=== PATIENT | female | born 1965 | race Caucasian/White ===

== ENCOUNTER 2023-12-31 12:32 | Emergency (ER) | payer OTHER ==
--- NOTE | 2023-12-31 13:55 | RAD REPORT ---
EXAM DESCRIPTION: Roger Single View12/31/2023 1:45 pm CLINICAL HISTORY: Cough COMPARISON: none FINDINGS: The lungs appear clear of acute infiltrate. The heart is normal size. Postsurgical changes involve chest IMPRESSION: No acute abnormalities displayed
[2023-12-31 14:04] LABS: SARS-CoV-2 Antigen CONTROL BLUE LINE VIS/BG OK; SARS-CoV-2 Antigen Rapid Res Negative (Negative)
[2023-12-31] MEDS ORDERED: predniSONE 20 MG TAB ONE (14:52)
[2023-12-31] MEDS ORDERED: AZITHROMYCIN 250 MG TAB ONE (14:52)
[2023-12-31] MEDS ORDERED: LEVALBUTEROL 1.25 MG/3 ML NEB ONE (14:52)
--- NOTE | 2023-12-31 15:01 | EDPHYS ---
Physician Documentation [facility] Name: Sydney Malone Age: 58 yrs Sex: Female : 1965 Arrival Date: 12/31/2023 Time: 12:32 Bed 9 Private MD: ED Physician Low Mccarthy HPI: 12/30 14:33 This 58 yrs old Female presents to ER via Ambulatory with complaints of Cold Symptoms, rn Chest Congestion. 14:33 The patient or guardian reports cough. rn 14:35 Onset: The symptoms/episode began/occurred 1 week(s) ago. Severity of symptoms: At rn their worst the symptoms were moderate, in the emergency department the symptoms are unchanged. Modifying factors: The symptoms are alleviated by nothing, the symptoms are aggravated by nothing. Associated signs and symptoms: Pertinent negatives: fever. The patient has not experienced similar symptoms in the past. The patient has not recently seen a physician. Patient reports 1 week of cough and congestion, feels like had aspiration episode when this began. Seen at urgent care when began and told no pneumonia. Still coughing with wheezing. + smoker. . Historical: - Allergies: 13:02 Morphine; tm6 13:02 egg yolk; tm6 13:02 monocryl sutures; tm6 - PMHx: 12:57 Systemic lupus erythematosus; tm6 13:02 Hypothyroidism; degenerative disc disease; neuropathy; Migraine; tm6 - PSHx: 13:02 atrial septal defect surgery; neck fusion; shoulder; lower back; Total abdominal tm6 hysterectomy; Cholecystectomy; - Immunization history:: Client reports receiving the 2nd dose of the Covid vaccine. - Infectious Disease History:: Denies. - Social history:: Smoking status: Patient reports the use of cigarette tobacco products, smokes one-half pack cigarettes per day, Patient/guardian denies using alcohol. - Family history:: not pertinent. - Hospitalizations: : No recent hospitalization is reported. ROS: 14:35 Constitutional: Negative for fever, chills, and weight loss, Cardiovascular: Negative rn for chest pain, palpitations, and edema, Respiratory: + cough and sob Abdomen/GI: Negative for abdominal pain, nausea, vomiting, diarrhea, and constipation, MS/Extremity: Negative for injury and deformity, Skin: Negative for injury, rash, and discoloration, Neuro: Negative for headache, weakness, numbness, tingling, and seizure, Exam: 14:35 Constitutional: This is a well developed, well nourished patient who is awake, alert, rn and in no acute distress. Head/Face: Normocephalic, atraumatic. ENT: No stridor Cardiovascular: Tachycardic, regular. No pulse deficits. Respiratory: + moderate tachypnea, no retractions, mild wheezing. Abdomen/GI: Soft, non-tender MS/ Extremity: Pulses equal, no cyanosis. Neuro: Awake and alert, GCS 15 Vital Signs: 12:54 BP 134 / 102; Pulse 112; Resp 20; Temp 98.7(O); Pulse Ox 98% on R/A; Weight 78.93 kg; tm6 Height 5 ft. 8 in. ; Pain 4/10; 15:12 BP 119 / 83; Pulse 89; Resp 18; Pulse Ox 96% on R/A; ll1 12:54 Body Mass Index 26.46 (78.93 kg, 172.72 cm) tm6 12:54 Pain Scale: Adult tm6 MDM: 12:44 Patient medically screened. rn 15:01 Differential Diagnosis: Viral Syndrome Pneumonia. Data reviewed: vital signs, nurses rn notes, lab test result(s), radiologic studies, and as a result, I will discharge patient. Counseling: I had a detailed discussion with the patient and/or guardian regarding the historical points, exam findings, and any diagnostic results supporting the discharge/admit diagnosis, lab results, radiology results, the need for outpatient follow up, to return to the emergency department if symptoms worsen or persist or if there are any questions or concerns that arise at home. Response to treatment: the patient's symptoms have mildly improved after treatment, and as a result, I will discharge patient. Special discussion: I discussed with the patient/guardian in detail that at this point there is no indication for admission to the hospital. It is understood, however, that if the symptoms persist or worsen the patient needs to return immediately for re-evaluation. 12/30 12:45 Order name: SARS RAPID; Complete Time: 14:07 rn 12/30 12:45 Order name: Flu; Complete Time: 14: rn 12/30 12:45 Order name: XRAY Chest (1 view) rn Administered Medications: 14:59 Drug: Levalbuterol Inhalation 1.25 mg Inhalation once Route: Inhalation; ll1 15:12 Follow up: Response: No adverse reaction; Wheezing diminished; RASS: Alert and Calm (0) ll1 14:59 Drug: predniSONE PO 60 mg PO once Route: PO; ll1 15:12 Follow up: Response: No adverse reaction ll1 14:59 Drug: AZITHromycin PO 500 mg PO once Route: PO; ll1 15:12 Follow up: Response: No adverse reaction ll1 Disposition Summary: 12/31/23 15:01 Discharge Ordered Notes: Location: Home rn Problem: new rn Symptoms: have improved rn Condition: Stable rn Diagnosis - Cough rn Followup: rn - With: Private Physician - When: As needed - Reason: Recheck today's complaints, Re-evaluation by your physician Discharge Instructions: - Discharge Summary Sheet rn - Cough, Adult rn - Pneumonitis rn Forms: - Medication Reconciliation Form rn - Antibiotic athletic training internship - Prescription Opioid Use rn - Patient Portal Instructions rn - Leadership Thank You Letter rn Prescriptions: - albuterol sulfate 90 mcg/actuation Inhalation HFA Aerosol Inhaler - inhale 2 inhalation INHALATION route every 4 to 6 hours As needed as needed for rn bronchospasm; administer via ventilator; 1 unit; Refills: 0, Product Selection Permitted - Prednisone 20 mg Oral Tablet - take 3 tablets ORAL route once daily for 5 days; 15 tablet; Refills: 0, Product rn Selection Permitted - Zithromax Z-Vijay 250 mg Oral Tablet - take 1 tablet ORAL route as directed for 5 days Day 1 - take two (2) tablets rn one time. Day 2, 3, 4 , 5 take one (1) tablet once daily.; 6 tablet; Refills: 0, Product Selection Permitted Signatures: Dispatcher [employer] Low Oleary MD MD rn Lewis, Lynsay RN RN ll1 Kyle Damon RN RN tm6
--- NOTE | 2023-12-31 15:01 | ER ---
Nurse's Notes [facility] Name: Sydney Malone Age: 58 yrs Sex: Female : 1965 Arrival Date: 12/31/2023 Time: 12:32 Bed 9 Private MD: Diagnosis: Cough Presentation: 12/30 12:55 Chief complaint: Patient states: one week ago went to urgent care because I tm6 accidentally inhaled my pills through my lungs, it was burning. They didn't know what to do for me. Since then, I have been coughing and had chest congestion. I have also been around my family who has been sick. I have felt short of breath. Ebola Screen: Patient negative for fever greater than or equal to 101.5 degrees Fahrenheit, and additional compatible Ebola Virus Disease symptoms Patient denies exposure to infectious person. Patient denies travel to an Ebola-affected area in the 21 days before illness onset. No symptoms or risks identified at this time. Initial Sepsis Screen: Does the patient meet any 2 criteria? No. Patient's initial sepsis screen is negative. Does the patient have a suspected source of infection? No. Patient's initial sepsis screen is negative. Risk Assessment: Do you want to hurt yourself or someone else? Patient reports no desire to harm self or others. Onset of symptoms was December 24, 2023. 12:55 Method Of Arrival: Ambulatory tm6 12:55 Acuity: GENEVA 4 tm6 13:00 Coronavirus screen: Vaccine status: Patient reports receiving the 2nd dose of the covid tm6 vaccine. Triage Assessment: 12:57 General: Appears in no apparent distress. uncomfortable, Behavior is calm, cooperative. tm6 Pain: Complains of pain in chest Pain currently is 4 out of 10 on a pain scale. EENT: No signs and/or symptoms were reported regarding the EENT system. Neuro: Level of Consciousness is awake, alert, obeys commands, Oriented to person, place, time, situation. Cardiovascular: Patient's skin is warm and dry. Respiratory: Reports shortness of breath at rest cough that is non-productive, persistent pain with cough Airway is patent Respiratory effort is even, unlabored, Respiratory pattern is regular, symmetrical, Onset: The symptoms/episode began/occurred one week ago. GI: No signs and/or symptoms were reported involving the gastrointestinal system. Abdomen is flat, non-distended. : No signs and/or symptoms were reported regarding the genitourinary system. Derm: No signs and/or symptoms reported regarding the dermatologic system. Musculoskeletal: No signs and/or symptoms reported regarding the musculoskeletal system. Historical: - Allergies: 13:02 Morphine; tm6 13:02 egg yolk; tm6 13:02 monocryl sutures; tm6 - PMHx: 12:57 Systemic lupus erythematosus; tm6 13:02 Hypothyroidism; degenerative disc disease; neuropathy; Migraine; tm6 - PSHx: 13:02 atrial septal defect surgery; neck fusion; shoulder; lower back; Total abdominal tm6 hysterectomy; Cholecystectomy; - Immunization history:: Client reports receiving the 2nd dose of the Covid vaccine. - Infectious Disease History:: Denies. - Social history:: Smoking status: Patient reports the use of cigarette tobacco products, smokes one-half pack cigarettes per day, Patient/guardian denies using alcohol. - Family history:: not pertinent. - Hospitalizations: : No recent hospitalization is reported. Screenin:13 [facility] ED Fall Risk Assessment (Adult) History of falling in the last 3 months, ll1 including since admission No falls in past 3 months (0 pts) Confusion or Disorientation No (0 pts) Intoxicated or Sedated No (0 pts) Impaired Gait No (0 pts) Mobility Assist Device Used No (0 pt) Altered Elimination No (0 pt) Score/Fall Risk Level 0 - 2 = Low Risk Maintained a safe environment, Hourly rounding (assess needs \T\ fall precautionary measures) done. Abuse screen: Denies threats or abuse. Nutritional screening: No deficits noted. Tuberculosis screening: No symptoms or risk factors identified. Assessment: 14:10 Reassessment: No changes from previously documented assessment. Patient and/or family ll1 updated on plan of care and expected duration. Pain level reassessed. Patient is alert, oriented x 3, equal unlabored respirations, skin warm/dry/pink. 14:59 Reassessment: No changes from previously documented assessment. Patient and/or family ll1 updated on plan of care and expected duration. Pain level reassessed. Patient is alert, oriented x 3, equal unlabored respirations, skin warm/dry/pink. Respiratory: Reports shortness of breath Airway is patent Trachea midline Respiratory effort is even, labored, Respiratory pattern is regular, Breath sounds with wheezes bilaterally. 15:12 Reassessment: No changes from previously documented assessment. Patient and/or family ll1 updated on plan of care and expected duration. Pain level reassessed. Patient is alert, oriented x 3, equal unlabored respirations, skin warm/dry/pink. Vital Signs: 12:54 BP 134 / 102; Pulse 112; Resp 20; Temp 98.7(O); Pulse Ox 98% on R/A; Weight 78.93 kg; tm6 Height 5 ft. 8 in. ; Pain 4/10; 15:12 BP 119 / 83; Pulse 89; Resp 18; Pulse Ox 96% on R/A; ll1 12:54 Body Mass Index 26.46 (78.93 kg, 172.72 cm) tm6 12:54 Pain Scale: Adult tm6 ED Course: 12:35 Patient arrived in ED. ra3 12:44 Low Mccarthy MD is Attending Physician. rn 12:57 Triage completed. tm6 12:57 Arm band placed on right wrist. tm6 13:10 Flu Sent. tm6 13:10 SARS RAPID Sent. tm6 13:46 XRAY Chest (1 view) In Process Unspecified. EDMS 14:09 Patient placed in an exam room, on a stretcher. ll1 15:00 Patient has correct armband on for positive identification. Cardiac monitoring not ll1 applicable on this patient. 15:13 Provided Education on: finish all prescribed antibiotics. ll1 15:13 No provider procedures requiring assistance completed. Patient did not have IV access ll1 during this emergency room visit. Administered Medications: 14:59 Drug: Levalbuterol Inhalation 1.25 mg Inhalation once Route: Inhalation; ll1 15:12 Follow up: Response: No adverse reaction; Wheezing diminished; RASS: Alert and Calm (0) ll1 14:59 Drug: predniSONE PO 60 mg PO once Route: PO; ll1 15:12 Follow up: Response: No adverse reaction ll1 14:59 Drug: AZITHromycin PO 500 mg PO once Route: PO; ll1 15:12 Follow up: Response: No adverse reaction ll1 Medication: 14:14 VIS not applicable for this client. ll1 Outcome: 15:01 Discharge ordered by . rn 15:13 Discharged to home ambulatory, ll1 15:13 Condition: stable 15:13 Discharge instructions given to patient, Instructed on discharge instructions, follow up and referral plans. medication usage, Demonstrated understanding of instructions, follow-up care, medications, Prescriptions given X 3, 15:13 Patient left the ED. ll1 Signatures: Dispatcher [employer] EDMS Low Mccarthy MD MD rn Lewis, Lynsay RN RN ll1 Kyle Damon RN RN 6 Veronica Knight [facility]
[2023-12-31 15:26] VITALS: BP 119/83; TEMP 98.7; O2SAT 96
== END 2023-12-31 15:13 | disposition home or self-care (01) ==
LOC: ER 12:32
DX: R05.9 Cough, unspecified (principal); R09.89 Other specified symptoms and signs involving the circulatory and respiratory systems; F17.210 Nicotine dependence, cigarettes, uncomplicated; Z11.52 Encounter for screening for COVID-19
CPT/HCPCS: 36415; 87804 ×2; 71045; 99284; 87811; J7512; J7614

== ENCOUNTER 2024-08-15 18:25 | Emergency (ER) | payer OTHER ==
[2024-08-15] MEDS ORDERED: ONDANSETRON 4 MG/2 ML VIAL ONE (19:51)
[2024-08-15] MEDS ORDERED: HYDROMORPHONE HCL 1 MG/ML INJ ONE ×2 (19:51→22:38)
[2024-08-15] MEDS ORDERED: NA CHLORIDE 0.9% 1,000 ML ONE (20:22)
[2024-08-15 20:24] LABS: Absolute Eosinophils 0.2 K/uL (0-0.5); Absolute Lymphocytes (CBC) 2.5 K/uL (0.7-4.9); Absolute Monocytes 0.4 K/uL (0.1-1.3); Absolute Neutrophil 3.6 K/uL (1.8-8.0); Basophils % 0.3 % (0-1.3); Eosinophils % 2.5 % (0-4.4); Hemoglobin 15.3 g/dL (12.0-15.0); Lymphocytes % 36.9 % (15.3-44.8); MCH 31.3 pg (27.0-35.0); MCHC 34.8 g/dL (32.0-36.0); MCV 90.1 fL (80-100); MPV 7.9 fL (7.6-11.3); Monocytes % 5.9 % (3.3-12.3); Neutrophils % 54.4 % (41.7-73.7); Nucleated Red Blood Cells % 0.1 % (0-0); Platelets 284 thou/uL (152-406); RBC Red Blood Cell Count 4.89 M/uL (3.86-4.86)
[2024-08-15 20:41] LABS: Albumin 4.1 g/dL (3.4-5.0); Albumin/Globulin Ratio 1.1 (1.1-1.8); Anion Gap 10.6 mEq/L (5.0-15.0); Bilirubin Total 0.4 mg/dL (0.2-1.0); Globulin 3.8 g/dL (2.3-3.5); Potassium 3.6 mEq/L (3.5-5.1); Protein, Total 7.9 g/dL (6.4-8.2)
[2024-08-15 21:07] LABS: Specific Gravity 1.018 (1.005-1.030); Sqamous Epithelial <5 /HPF (None Seen); Urine Bacteria <20 /HPF (<20); Urine Bilirubin NEGATIVE (Negative); Urine Blood Negative (Negative); Urine Clarity Turbid (Clear); Urine Color Light-Yellow (Yellow); Urine Crystals Unidentified Few /HPF (None Seen); Urine Culture Reflex Order NOT NEEDED; Urine Glucose NEGATIVE (Negative); Urine Ketones NEGATIVE (Negative); Urine Microscopic Reflex YN ORDER UMIC; Urine Mucus Slight /HPF (None Seen); Urine Nitrite NEGATIVE (Negative); Urine Protein NEGATIVE (Negative); Urine RBC <5 /HPF (None Seen); Urine Urobilinogen Normal (Normal); Urine WBC None Seen /HPF (<5)
--- NOTE | 2024-08-15 22:44 | RAD REPORT ---
EXAMINATION: CT Abdomen Pelvis W Contrast CLINICAL INDICATION: Female, 59 years old. abdominal pain TECHNIQUE: CT abdomen and pelvis was performed, after the administration of IV contrast, [facility]. Axial, sagittal and coronal reconstructions were obtained. One or more of the following dose reduction techniques were used: Automated exposure control, adjustment of the mA and k V according to patient size, and iterative reconstruction. Unless otherwise specified, incidental findings do not require dedicated imaging follow-up. COMPARISON: No prior exam. FINDINGS: LOWER CHEST: The visualized lung bases are clear. LIVER: Normal in size and contour. No focal lesion. BILIARY SYSTEM: Status post cholecystectomy. SPLEEN: Normal size. No focal lesion. PANCREAS: Fatty infiltration especially at the head. No mass, ductal dilation, or duane-pancreatic flu id. ADRENALS: Normal; no mass. KIDNEYS: Normal size and contour. No hydronephrosis. URINARY BLADDER: Suboptimally distended limiting evaluation.. GASTROINTESTINAL TRACT: No evidence of free air, significant intra-abdominal free fluid, bowel obstru ction or abscess. APPENDIX: Appendix not visualized, but no inflammatory changes in region of appendix. LYMPH NODES: No lymphadenopathy. MUSCULOSKELETAL: Sequelae of anterior spinal fusion at L4-5 and L5-S1. No acute or suspicious osseous abnormality. ADDITIONAL FINDINGS: Vascular stent along the proximal celiac axis.. Status post hysterectomy. IMPRESSION: No acute or concerning abnormalities seen in the abdomen or pelvis. Incidental and postsurgical findi ngs as above.
--- NOTE | 2024-08-15 23:30 | EDPHYS ---
Physician Documentation [facility] Name: Sydney Malone Age: 59 yrs Sex: Female : 1965 Arrival Date: 08/15/2024 Time: 18:25 Bed 16 Private MD: ED Physician Garo Elmore HPI: 08/15 19:26 This 59 yrs old Female presents to ER via Wheelchair with complaints of Abdominal Pain. sb4 19:26 patient reports RLQ pain and epigastric pain x 4 days. states she has a history of "GI sb4 issues" and had a procedure done 3 days ago- had some sort of ablation in her stomach via EGD. She called her GI doctor the following day with concerns of the pain and he told her it was as they had basically created a "ulcer "in her stomach. She has been taking her pantoprazole, sucralfate, and regular pain medication from pain management but states that the pain in her right lower quadrant has gotten worse. She is concerned about appendicitis. States she had diarrhea 1 day and has felt extremely nauseated but has not really eaten anything so has not vomited. Historical: - Allergies: 19:15 egg yolk; cm10 19:15 monocryl sutures; cm10 19:15 Morphine; cm10 - PMHx: 19:15 Degenerative disc disease; Hypothyroidism; Migraine; neuropathy; Systemic Lupus cm10 Erythematosus; - PSHx: 19:15 atrial septal defect surgery; Cholecystectomy; lower back; neck fusion; Shoulder; Total cm10 abdominal hysterectomy; - Immunization history:: Adult Immunizations up to date. - Infectious Disease History:: Denies. - Social history:: Smoking status: unknown. ROS: 20:21 Constitutional: Negative for fever, chills, and weight loss, sb4 20:21 Abdomen/GI: Positive for abdominal pain, nausea, diarrhea, 20:21 All other systems are negative, Exam: 20:21 Head/Face: Normocephalic, atraumatic. Eyes: Extra-ocular motions intact. Periorbital sb4 areas with no swelling, redness, or edema. ENT: Mucous membranes moist. Cardiovascular: Regular rate and rhythm with a normal S1 and S2. Respiratory: No increased work of breathing, no retractions or nasal flaring. Skin: Warm, dry with normal turgor. Normal color with no rashes, no lesions, and no evidence of cellulitis. 20:21 Constitutional: The patient appears alert, awake, uncomfortable, 20:21 Abdomen/GI: Inspection: abdomen appears normal, Bowel sounds: normal, Palpation: soft, moderate abdominal tenderness, in the right lower quadrant, Vital Signs: 19:16 BP 146 / 96; Pulse 85; Resp 18; Temp 98.6; Pulse Ox 100% ; Pain 8/10; cm10 20:40 BP 143 / 82; Pulse 71; Resp 16; Pulse Ox 97% on R/A; jb4 21:53 BP 123 / 97; Pulse 70; Resp 18; Pulse Ox 100% on R/A; jb4 23:06 BP 117 / 92; Pulse 68; Resp 16; Pulse Ox 98% on R/A; jb4 19:16 Pain Scale: Adult cm10 MDM: 19:12 Medical Screening Exam initiated sb4 23:30 Data reviewed: vital signs, nurses notes, lab test result(s), radiologic studies, and sb4 as a result, I will discharge patient. Counseling: I had a detailed discussion with the patient and/or guardian regarding the historical points, exam findings, and any diagnostic results supporting the discharge/admit diagnosis, lab results, radiology results, the need for outpatient follow up, a saw runner, to return to the emergency department if symptoms worsen or persist or if there are any questions or concerns that arise at home. 23:31 ED course: Patient reports mild improvement in symptoms. She states that she is ready sb4 to go home and will call her GI doctor tomorrow. 08/15 19:23 Order name: CBC with Diff; Complete Time: 20:27 sb4 08/15 19:23 Order name: CMP; Complete Time: 20:48 sb4 08/15 19:23 Order name: Lipase; Complete Time: 20:48 sb4 08/15 19:23 Order name: Urinalysis w/ reflexes; Complete Time: 21:07 sb4 08/15 21:21 Order name: Abdomen ; Complete Time: 22:47 EDMS 08/15 19:24 Order name: IV Saline Lock; Complete Time: 20:13 sb4 08/15 19:24 Order name: Labs collected and sent; Complete Time: 20:13 sb4 Administered Medications: 20:13 Drug: Ondansetron IVP 4 mg IVP once; over 2 minutes Route: IVP; Site: right antecubital;bm8 20:45 Follow up: Response: No adverse reaction; Marked relief of symptoms jb4 20:13 Drug: HYDROmorphone IVP 1 mg IVP once Route: IVP; Site: right antecubital; bm8 20:45 Follow up: Response: No adverse reaction; Marked relief of symptoms; Pain is decreased jb4 20:27 Drug: NS 0.9% IV 1000 ml IV at 1 bolus Per protocol; to be given as a bolus over 60 jb4 minutes {Note: administered by LOULOU Victoria.} Route: IV; Rate: 1 bolus; Site: right antecubital; 21:30 Follow up: Response: No adverse reaction; IV Status: Completed infusion; IV Intake: jb4 1000ml 22:42 Drug: HYDROmorphone IVP 1 mg IVP once Route: IVP; Site: right antecubital; jb4 08/16 00:04 Follow up: Response: No adverse reaction; Marked relief of symptoms; Pain is decreased; jb4 RASS: Alert and Calm (0) Disposition: 08:57 Co-signature as Attending Physician, Garo Elmore MD I reviewed the patient's care rt provided by the Advanced Practice Provider and agree with the diagnosis and treatment plan. Disposition Summary: 08/15/24 23:29 Discharge Ordered Notes: Location: Home sb4 Problem: new sb4 Symptoms: are unchanged sb4 Condition: Stable sb4 Diagnosis - Abdominal pain, Generalized sb4 Followup: sb4 - With: Emergency Department - When: As needed - Reason: Worsening of condition Discharge Instructions: - Discharge Summary Sheet sb4 - Constipation, Adult, [id number] sb4 - Abdominal Pain, Adult, [id number] sb4 Forms: - Patient Portal Instructions sb4 - Leadership Thank You Letter sb4 Prescriptions: - promethazine 25 mg Oral tablet - take 1 tablet ORAL route every 6 hours As needed; 15 tablet; Refills: 0, sb4 Product Selection Permitted Signatures: Dispatcher [employer] Wiley Mckeon RN RN jb4 Jaki Flor PA-C PA-C sb4 [place], Ryan, MD MD rt Betsy Elliott RN RN cm10 Julien Dotson, RN RN bm8 Corrections: (The following items were deleted from the chart) 08/15 19:24 19:24 CBC+H.LAB.BRZ ordered. EDMS EDMS 19:24 19:24 COMPREHENSIVE METABOLIC PANEL+C.LAB.BRZ ordered. EDMS EDMS 19:24 19:24 LIPASE+C.LAB.BRZ ordered. EDMS EDMS 19:24 19:24 Urinalysis+U.LAB.BRZ ordered. EDMS EDMS 20:23 19:26 patient reports RLQ pain and epigastric pain x 4 days. states she has a history sb4 of "GI issues" and had a procedure done 3 days ago- had some sort of ablation in her stomach via EGD. sb4
--- NOTE | 2024-08-15 23:30 | ER ---
Nurse's Notes [facility] Name: Sydney Malone Age: 59 yrs Sex: Female : 1965 Arrival Date: 08/15/2024 Time: 18:25 Bed 16 Private MD: Diagnosis: Abdominal pain, Generalized Presentation: 08/15 19:16 Chief complaint: Patient states: Had a procedure at [facility] and has been cm10 having pain and nausea since. Pt also reports having RLQ abdominal pain. Coronavirus screen: Client denies travel out of the [place] in the last 14 days. Ebola Screen: Patient denies travel to an Ebola-affected area in the 21 days before illness onset. Initial Sepsis Screen: Does the patient meet any 2 criteria? No. Patient's initial sepsis screen is negative. Does the patient have a suspected source of infection? No. Patient's initial sepsis screen is negative. Risk Assessment: Do you want to hurt yourself or someone else? Patient reports no desire to harm self or others. Onset of symptoms is unknown. 19:16 Method Of Arrival: Wheelchair cm10 19:16 Acuity: GENEVA 3 cm10 Triage Assessment: 19:18 General: Appears in no apparent distress. uncomfortable, Behavior is cooperative. Pain: cm10 Complains of pain in abdomen Pain currently is 8 out of 10 on a pain scale. Neuro: No deficits noted. Level of Consciousness is awake, alert, obeys commands, Oriented to person, place, time, situation, Appropriate for age. Respiratory: No deficits noted. Airway is patent Respiratory effort is even, unlabored, Respiratory pattern is regular, symmetrical. Historical: - Allergies: 19:15 egg yolk; cm10 19:15 monocryl sutures; cm10 19:15 Morphine; cm10 - PMHx: 19:15 Degenerative disc disease; Hypothyroidism; Migraine; neuropathy; Systemic Lupus cm10 Erythematosus; - PSHx: 19:15 atrial septal defect surgery; Cholecystectomy; lower back; neck fusion; Shoulder; Total cm10 abdominal hysterectomy; - Immunization history:: Adult Immunizations up to date. - Infectious Disease History:: Denies. - Social history:: Smoking status: unknown. Screenin/15 00:03 [facility] ED Fall Risk Assessment (Adult) History of falling in the last 3 months, jb4 including since admission No falls in past 3 months (0 pts) Confusion or Disorientation No (0 pts) Intoxicated or Sedated No (0 pts) Impaired Gait No (0 pts) Mobility Assist Device Used No (0 pt) Altered Elimination No (0 pt) Score/Fall Risk Level 0 - 2 = Low Risk Oriented to surroundings, Maintained a safe environment. Abuse screen: Denies threats or abuse. Nutritional screening: No deficits noted. Tuberculosis screening: No symptoms or risk factors identified. Assessment: 08/15 20:40 Reassessment: Patient appears in no apparent distress at this time. Patient and/or jb4 family updated on plan of care and expected duration. Pain level reassessed. Patient is alert, oriented x 3, equal unlabored respirations, skin warm/dry/pink. 22:00 Reassessment: Patient appears in no apparent distress at this time. Patient and/or jb4 family updated on plan of care and expected duration. Pain level reassessed. Patient is alert, oriented x 3, equal unlabored respirations, skin warm/dry/pink. 23:05 Reassessment: Patient appears in no apparent distress at this time. Patient and/or jb4 family updated on plan of care and expected duration. Pain level reassessed. Patient is alert, oriented x 3, equal unlabored respirations, skin warm/dry/pink. Patient states feeling better. 08/16 00:03 Reassessment: Patient appears in no apparent distress at this time. Patient and/or jb4 family updated on plan of care and expected duration. Pain level reassessed. Patient is alert, oriented x 3, equal unlabored respirations, skin warm/dry/pink. Vital Signs: 08/15 19:16 BP 146 / 96; Pulse 85; Resp 18; Temp 98.6; Pulse Ox 100% ; Pain 8/10; cm10 20:40 BP 143 / 82; Pulse 71; Resp 16; Pulse Ox 97% on R/A; jb4 21:53 BP 123 / 97; Pulse 70; Resp 18; Pulse Ox 100% on R/A; jb4 23:06 BP 117 / 92; Pulse 68; Resp 16; Pulse Ox 98% on R/A; jb4 19:16 Pain Scale: Adult cm10 ED Course: 19:06 Patient arrived in ED. cm10 19:10 Jaki Flor PA-C is PHCP. sb4 19:10 Garo Elmore MD is Attending Physician. sb4 19:17 Triage completed. cm10 19:18 Arm band placed on left wrist. Patient placed in waiting room. cm10 20:14 Initial lab(s) drawn, by me, sent to lab. Urine collected: clean catch specimen, clear. bm8 Inserted saline lock: 20 gauge in right antecubital area, using aseptic technique. Blood collected. Flushed with 10 mL NS. 20:40 Wiley Maravilla RN is Primary Nurse. jb4 21:43 Abdomen In Process Unspecified. EDMS 08/16 00:03 Patient has correct armband on for positive identification. Bed in low position. Call jb4 light in reach. Side rails up X 1. Provided Education on: discharge isntructions.. 00:03 No provider procedures requiring assistance completed. IV discontinued, intact, jb4 bleeding controlled, No redness/swelling at site. Pressure dressing applied. Administered Medications: 08/15 20:13 Drug: Ondansetron IVP 4 mg IVP once; over 2 minutes Route: IVP; Site: right antecubital;bm8 20:45 Follow up: Response: No adverse reaction; Marked relief of symptoms jb4 20:13 Drug: HYDROmorphone IVP 1 mg IVP once Route: IVP; Site: right antecubital; bm8 20:45 Follow up: Response: No adverse reaction; Marked relief of symptoms; Pain is decreased jb4 20:27 Drug: NS 0.9% IV 1000 ml IV at 1 bolus Per protocol; to be given as a bolus over 60 jb4 minutes {Note: administered by LOULOU Victoria.} Route: IV; Rate: 1 bolus; Site: right antecubital; 21:30 Follow up: Response: No adverse reaction; IV Status: Completed infusion; IV Intake: jb4 1000ml 22:42 Drug: HYDROmorphone IVP 1 mg IVP once Route: IVP; Site: right antecubital; jb4 08/16 00:04 Follow up: Response: No adverse reaction; Marked relief of symptoms; Pain is decreased; jb4 RASS: Alert and Calm (0) Medication: 00:03 VIS not applicable for this client. jb4 Intake: 08/15 21:30 IV: 1000ml; Total: 1000ml. jb4 Outcome: 23:29 Discharge ordered by MD. clemente 08/16 00:03 Discharged to home ambulatory, jb4 Condition: stable Discharge instructions given to patient, Instructed on discharge instructions, follow up and referral plans. medication usage, Demonstrated understanding of instructions, follow-up care, medications, Prescriptions given X 1, 00:05 Patient left the ED. [email or web address] Signatures: Dispatcher [employer] EDMS Wiley Maravilla RN RN jb4 Jaki Flor PACarol PACarol [email or web address] Betsy Elliott, RN RN cm10 Julien Dotson, RN RN bm8 Corrections: (The following items were deleted from the chart) 08/15 23:06 22:00 BP 117 / 92; Pulse 68bpm; Resp 16bpm; Pulse Ox 98% RA; jb4 jb4
[2024-08-16 00:16] VITALS: TEMP 98.6
[2024-08-16 00:20] VITALS: BP 117/92; O2SAT 98
== END 2024-08-16 00:05 | disposition home or self-care (01) ==
LOC: ER 18:25
DX: R10.84 Generalized abdominal pain (principal)
CPT/HCPCS: 96361; 85025; 81001; 36415; 83690; 80053; 74177; 96375; 96374; 99284; Q9967; J1171 ×2; J2405; J7030